=== PATIENT | male | born 1995 | race Caucasian/White ===

== ENCOUNTER 2018-02-14 12:56 | Emergency (ER) | payer BC, MEDICAID ==
[~2018-02-14] VITALS: Ht 182.9 cm; Wt 103.5 kg
[2018-02-14 13:41] LABS: BASOPHILS % (AUTO) 0.3 % (0-1); EOSINOPHILS # (AUTO) 0.2 X10'3 (0-0.9); HEMATOCRIT 46.9 % (42.0-52.0); LYMPHOCYTES # (AUTO) 2.3 X10'3 (1.1-4.8); LYMPHOCYTES % (AUTO) 27.2 % (21-51); MEAN CORPUSCULAR HEMOGLOBIN 30.7 PG (27.0-31.0); MEAN CORPUSCULAR VOLUME 90.3 FL (78-98); MONOCYTES # (AUTO) 0.5 X10'3 (0-0.9); MONOCYTES % (AUTO) 6.6 % (2-12); NEUTROPHILS # (AUTO) 5.3 X10'3 (1.8-7.7); NEUTROPHILS % (AUTO) 63.9 % (42-75); PLATELET COUNT 227 X10'3 (140-440); RED CELL DISTRIBUTION WIDTH 12.4 % (11.5-14.5); WHITE BLOOD COUNT 8.4 X10'3 (4.5-11.0)
[2018-02-14 13:57] LABS: ALANINE AMINOTRANSFERASE 36 U/L (12-78); ALBUMIN 4.4 G/DL (3.4-5.0); ALBUMIN/GLOBULIN RATIO 1.3 (1.1-1.5); ALKALINE PHOSPHATASE 78 IU/L (46-116); ANION GAP 12 (8-16); ASPARTATE AMINO TRANSFERASE 17 U/L (10-37); BILIRUBIN,TOTAL 0.4 MG/DL (0.1-1.0); BLOOD UREA NITROGEN 17 MG/DL (7-18); BUN/CREATININE RATIO 17.3 (5.4-32.0); CALCIUM 9.2 MG/DL (8.5-10.1); CHLORIDE 104 MMOL/L (99-107); CREATININE 0.98 MG/DL (0.60-1.10); GLUCOSE 115 MG/DL (70-104); POTASSIUM 3.5 MMOL/L (3.5-5.1); SODIUM 141 MMOL/L (135-145); TOTAL CARBON DIOXIDE 24.6 MMOL/L (24-32); TOTAL PROTEIN 7.9 G/DL (6.4-8.2); eGFR > 90 ML/MIN
[2018-02-14] MEDS ORDERED: LORA1TAB PO (15:21)
[2018-02-14 16:00] VITALS: BP 135/82
== END 2018-02-14 16:05 | disposition home or self-care (01) ==
LOC: ER 12:56
DX: R07.89 Other chest pain (principal)
CPT/HCPCS: 36415; 71045; 80053; 82948; 84484; 85025; 93005; 99284

== ENCOUNTER 2018-05-22 19:54 | Emergency (ER) | payer BC, MEDICAID ==
[~2018-05-22] VITALS: Ht 182.9 cm; Wt 110.0 kg
[2018-05-22 21:40] LABS: BASOPHILS # (AUTO) 0.1 X10'3 (0-0.2); BASOPHILS % (AUTO) 0.4 % (0-1); EOSINOPHILS # (AUTO) 0.1 X10'3 (0-0.9); EOSINOPHILS % (AUTO) 0.5 % (0-6); HEMATOCRIT 50.3 % (42.0-52.0); HEMOGLOBIN 17.3 g/dl (14.0-17.9); LYMPHOCYTES # (AUTO) 1.7 X10'3 (1.1-4.8); LYMPHOCYTES % (AUTO) 11.9 % (21-51); MEAN CORPUSCULAR HEMOGLOBIN 31.3 PG (27.0-31.0); MEAN CORPUSCULAR HGB CONC 34.4 g/dL (33.0-36.5); MEAN CORPUSCULAR VOLUME 91.2 FL (78-98); MEAN PLATELET VOLUME 8.3 FL (7.4-10.4); MONOCYTES # (AUTO) 0.7 X10'3 (0-0.9); MONOCYTES % (AUTO) 5.1 % (2-12); NEUTROPHILS # (AUTO) 11.4 X10'3 (1.8-7.7); NEUTROPHILS % (AUTO) 82.1 % (42-75); PLATELET COUNT 229 X10'3 (140-440); RED BLOOD COUNT 5.52 X10'6 (4.70-6.10); RED CELL DISTRIBUTION WIDTH 13.2 % (11.5-14.5); WHITE BLOOD COUNT 13.9 X10'3 (4.5-11.0)
[2018-05-22 21:47] LABS: ALANINE AMINOTRANSFERASE 36 U/L (12-78); ALBUMIN 4.3 G/DL (3.4-5.0); ALBUMIN/GLOBULIN RATIO 1.2 (1.1-1.5); ALKALINE PHOSPHATASE 72 IU/L (46-116); ANION GAP 11 (8-16); ASPARTATE AMINO TRANSFERASE 22 U/L (10-37); BILIRUBIN,TOTAL 0.5 MG/DL (0.1-1.0); BLOOD UREA NITROGEN 13 MG/DL (7-18); BUN/CREATININE RATIO 11.4 (5.4-32.0); CALCIUM 9.7 MG/DL (8.5-10.1); CHLORIDE 104 MMOL/L (99-107); CREATININE 1.14 MG/DL (0.60-1.10); ETHANOL < 0.010 GM/DL (0.0-0.010); GLUCOSE 142 MG/DL (70-104); POTASSIUM 3.8 MMOL/L (3.5-5.1); SODIUM 141 MMOL/L (135-145); TOTAL CARBON DIOXIDE 26.1 MMOL/L (24-32); TOTAL PROTEIN 7.8 G/DL (6.4-8.2); eGFR 79 ML/MIN
[2018-05-22 22:40] LABS: URINE AMPHETAMINE SCREEN NEGATIVE (Neg); URINE BARBITUATE SCREEN NEGATIVE (Neg); URINE BENZODIAZEPINES SCREEN NEGATIVE (Neg); URINE CANNABINOID SCREEN POSITIVE (Neg); URINE COCAINE SCREEN POSITIVE (Neg); URINE METHADONE SCREEN NEGATIVE (Neg); URINE OPIATE SCREEN NEGATIVE (Neg); URINE PHENCYCLIDINE SCREEN NEGATIVE (Neg)
--- NOTE | 2018-05-22 22:46 | NUR ---
SOC TELPSYCH INTIATED.
--- NOTE | 2018-05-23 00:18 | NUR ---
TELE-PSYCH CONSULT BEGINNING
--- NOTE | 2018-05-23 00:39 | NUR ---
PER SOC PT MEETS CRITERIA FOR 5150 HOLD, HE IS RECOMMENDING SEROQUEL 50MG NOW, VALIUM 5 MG NOW.
--- NOTE | 2018-05-23 00:41 | NUR ---
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 PT REPORTS HAVING A SHOTGUN AT HOME AND IS NOT SAFE TO RETURN.
[2018-05-23] MEDS ORDERED: quetiapine 100mg tablet PO SCH (00:45)
[2018-05-23] MEDS ORDERED: quetiapine 100mg tablet PO ONE (00:45)
[2018-05-23] MEDS ORDERED: folic acid 1mg tablet PO ONE (00:45)
[2018-05-23] MEDS ORDERED: diazepam 5mg tablet PO ONE (00:45)
[2018-05-23] MEDS ORDERED: thiamine 100mg tablet PO ONE (00:45)
--- NOTE | 2018-05-23 08:13 | NUR ---
called telepsyc to send report from telepsyc at [id number]. Stated is complete and will send. Gave number for registration fax number.
[2018-05-23] MEDS: thiamine 100mg tablet PO SCH (08:35)
[2018-05-23] MEDS: folic acid 1mg tablet PO SCH (08:35)
[2018-05-23] MEDS ORDERED: quetiapine 100mg tablet PO PRN (08:35)
[2018-05-23] MEDS ORDERED: QUEtiapine 25mg tablet PO PRN (08:49)
--- NOTE | 2018-05-23 09:53 | NUR ---
provider in with pt and family, pt calm quietly talking
--- NOTE | 2018-05-23 10:29 | NUR ---
PT IS LAYING IN BED MOM AT BEDSIDE, NO S/S OF DISTRESS OBSERVED
--- NOTE | 2018-05-23 12:04 | NUR ---
PT TRANSFERED FROM ER 15 TO OF[facility]
--- NOTE | 2018-05-23 12:05 | NUR ---
Patient brought over from Main ER via ambulatory. Made comforable in bed. Patient fell asleep immediately.
--- NOTE | 2018-05-23 12:30 | NUR ---
Mother here to visit. Concerned about son's welfare. State "He's the type to not say anything and go off and kill herself." Mother is tearful. Sat beside patient's bed as he slept.
--- NOTE | 2018-05-23 13:15 | NUR ---
Awakened for lunch. Picked at his food then returned to sleep. Acknowledged his mother's presence though no conversation took place between them.
--- NOTE | 2018-05-23 14:30 | NUR ---
Father and stepmother here to visit. Sitting at bedside. Conversing easily with patient. Biological mother left when informed of biological father's visit.
--- NOTE | 2018-05-23 16:30 | NUR ---
Father and stepmother left patient's bedside at this time. Spoke briefly with patient. States he has lived a life of "hating myself." Describes himself as "an affectionate gerber." States "I wasn't getting what I needed from my marriage. My didn't want me. I was walking on pins and needles." Describes his relationship with his mother as "very close." Patient is the only child between his mother and father though he has step siblings.
--- NOTE | 2018-05-23 19:33 | NUR ---
Patient resting comfortably in bed with father and step-mother at bedside. Patient reports intermittent thoughts of suicidal ideation where he is shooting himself in the head with a pistol. Patient is calm and cooperative. Patient is updated on POC.
--- NOTE | 2018-05-23 21:16 | NUR ---
Patient sleeping comfortably in a supine position.
--- NOTE | 2018-05-23 22:11 | NUR ---
Patient laying on left side and continues to sleep.
--- NOTE | 2018-05-23 23:12 | NUR ---
No change, patient continues to sleep supine.
--- NOTE | 2018-05-24 00:24 | NUR ---
Patient continues to sleep.
--- NOTE | 2018-05-24 02:51 | NUR ---
Patient continues sleeping supine with even, unlabored breathing.
[2018-05-24 06:06] VITALS: BP 120/74
--- NOTE | 2018-05-24 07:24 | NUR ---
Pt sleeping RR even and unlabored
--- NOTE | 2018-05-24 08:31 | NUR ---
Pt's parents woke pt for a visit. Pt up eating breakfast and visiting. Medications given. Pt calm and compliant with treatment.
[2018-05-24] MEDS: folic acid 1mg tablet PO SCH (08:47)
[2018-05-24] MEDS: thiamine 100mg tablet PO SCH (08:47)
--- NOTE | 2018-05-24 10:09 | NUR ---
Pt laying on his bed with his eyes closed; RR even and unlabored.
--- NOTE | 2018-05-24 12:06 | NUR ---
Pt awake laying on his side with his eyes opened.
--- NOTE | 2018-05-24 14:10 | NUR ---
Pt is reading a magazine waiting for sanitation truck driver from [facility] to transport to [facility] [place].
== END 2018-05-24 14:59 ==
LOC: ER 19:54
DX: R45.851 Suicidal ideations (principal); F31.9 Bipolar disorder, unspecified; F41.9 Anxiety disorder, unspecified
CPT/HCPCS: 36415; 80053; 80305; 80320; 85025; 99285